=== PATIENT | female | born 1990 | race Two or more races ===

== ENCOUNTER 2023-12-17 23:36 | Emergency (ER) | payer OTHER ==
[~2023-12-17] VITALS: Ht 154.9 cm; Wt 61.2 kg
[~2023-12-17 23:36] MED LIST: ORTHO TRI-7 DAYSX 3 PO
[2023-12-18] MEDS ORDERED: KETOROLAC TROMETHAMINE 60 MG VIAL IM STA (03:57)
[2023-12-18] MEDS ORDERED: ORPHENADRINE CITRATE 30 MG/ML AMPUL IM STA (03:57)
== END 2023-12-18 04:20 | disposition home or self-care (01) ==
LOC: ER 23:36
DX: M62.830 Muscle spasm of back (principal)